=== PATIENT | male | born 1935 | race American Indian/Alaskan Native ===

== ENCOUNTER 2017-09-18 13:04 | Emergency (ER) | payer MEDICARE, OTHER ==
[~2017-09-18] VITALS: Ht 170.2 cm; Wt 90.0 kg
[~2017-09-18 13:04] MED LIST: ALBU18HF2 INH; AMLO5TAB4 PO; ASPI-1071 PO; CALC-159 PO; DOCU-28 PO; FLO0.4C PO; HYDR-3965 PO; KETO5DRO39 LEFTEYE; MELO-102 PO; OMEP20CA10 PO; SPIIN INH; TRAM50TA2 PO
[2017-09-18 15:01] VITALS: BP 141/72
== END 2017-09-18 15:10 | disposition home or self-care (01) ==
LOC: ER 13:05
DX: T83.9XXA Unspecified complication of genitourinary prosthetic device, implant and graft, initial encounter (principal); L89.302 Pressure ulcer of unspecified buttock, stage 2; I10 Essential (primary) hypertension; J44.9 Chronic obstructive pulmonary disease, unspecified; E11.9 Type 2 diabetes mellitus without complications; G89.29 Other chronic pain; Z85.51 Personal history of malignant neoplasm of bladder; Z86.73 Personal history of transient ischemic attack (TIA), and cerebral infarction without residual deficits; Z87.891 Personal history of nicotine dependence; Z98.890 Other specified postprocedural states; Z79.82 Long term (current) use of aspirin; Z79.899 Other long term (current) drug therapy
CPT/HCPCS: 51702; 99284; A4315; 99283

== ENCOUNTER 2017-10-07 14:36 | Inpatient (IN) | payer MEDICARE, OTHER ==
[~2017-10-07] VITALS: Ht 170.2 cm; Wt 80.0 kg
[2017-10-07] MEDS ORDERED: normal saline 1000ML IV soln IV ONE (14:50)
[2017-10-07] MEDS ORDERED: acetaminophen 325mg tablet PO ONE (15:15)
[2017-10-07] MEDS ORDERED: acetaminophen 650mg rectal suppository RC ONE (15:15)
[2017-10-07 15:21] LABS: BASOPHILS # (AUTO) 0.1 X10'3 (0-0.2); BASOPHILS % (AUTO) 0.4 % (0-1); EOSINOPHILS # (AUTO) 0.4 X10'3 (0-0.9); EOSINOPHILS % (AUTO) 1.7 % (0-6); HEMATOCRIT 28.4 % (42.0-52.0); HEMOGLOBIN 9.5 g/dl (14.0-17.9); LYMPHOCYTES # (AUTO) 1.2 X10'3 (1.1-4.8); LYMPHOCYTES % (AUTO) 5.7 % (21-51); MEAN CORPUSCULAR HEMOGLOBIN 27.2 PG (27.0-31.0); MEAN CORPUSCULAR HGB CONC 33.4 % (33.0-36.5); MEAN CORPUSCULAR VOLUME 81.5 FL (78-98); MEAN PLATELET VOLUME 6.3 FL (7.4-10.4); MONOCYTES % (AUTO) 4.8 % (2-12); NEUTROPHILS # (AUTO) 18.4 X10'3 (1.8-7.7); NEUTROPHILS % (AUTO) 87.4 % (42-75); PLATELET COUNT 542 X10'3 (140-440); RED BLOOD COUNT 3.48 X10'6 (4.70-6.10); RED CELL DISTRIBUTION WIDTH 17.3 % (11.5-14.5)
[2017-10-07 15:31] LABS: INR 1.3 INR; PARTIAL THROMBOPLASTIN TIME 35 SECONDS (22-32); PROTHROMBIN TIME 13.4 SECONDS (9.0-12.0)
[2017-10-07 15:35] LABS: ALANINE AMINOTRANSFERASE 21 U/L (12-78); ALBUMIN 2.5 G/DL (3.4-5.0); ALBUMIN/GLOBULIN RATIO 0.4 (1.1-1.5); ALKALINE PHOSPHATASE 225 IU/L (46-116); ANION GAP 18 (8-16); ASPARTATE AMINO TRANSFERASE 12 U/L (10-37); BILIRUBIN,TOTAL 0.5 MG/DL (0.1-1.0); BLOOD UREA NITROGEN 72 MG/DL (7-18); BUN/CREATININE RATIO 21.8 (5.4-32.0); CALCIUM 9.1 MG/DL (8.5-10.1); CHLORIDE 112 MMOL/L (99-107); GLUCOSE 141 MG/DL (70-104); MAGNESIUM 2.5 MG/DL (1.5-2.4); POTASSIUM 5.1 MMOL/L (3.5-5.1); SODIUM 147 MMOL/L (135-145); TOTAL CARBON DIOXIDE 16.7 MMOL/L (24-32); TOTAL PROTEIN 8.6 G/DL (6.4-8.2); eGFR 18 ML/MIN
[2017-10-07] MEDS ORDERED: CefTRIAXone/D5W-Rocephin 1gm 50 ML IV ONE (15:45)
[2017-10-07] MEDS ORDERED: cefTRIAXone 1g/NS 100ml IVPB 100 ML IV ONE (15:45)
[2017-10-07 16:56] LABS: ABG BASE EXCESS -10.3 mmol/L (-2.0-3.0); ABG HCO3 14.3 mmol/L (22.0-26.0); ABG OXYGEN SATURATION 96.4 % (95-98); ABG PCO2 (T) 27.1 mmHg (35.0-48.0); ABG PO2 (T) 101.3 mmHg (83-108); ALLEN'S TEST Positive; FCOHb 0.5 % (0.5-1.5); FLOW 1 L/min; FMetHb 0.3 % (0.3-1.12); FO2Hb 95.6 % (94-100); TOTAL HEMOGLOBIN 8.1 G/dl (14.0-18.0)
[2017-10-07 17:05] LABS: CLARITY,URINE CLOUDY (Clear); COLOR,URINE YELLOW (Yellow); GLUCOSE, URINE NEGATIVE (Neg); KETONES,URINE TRACE mg/dl (Neg); LEUKOCYTE ESTERASE ,URINE MODERATE (Neg); NITRITES, URINE NEGATIVE (Neg); OCCULT BLOOD,URINE LARGE (Neg); PROTEIN,URINE 100 mg/dl (Neg)
[2017-10-07 17:19] LABS: UA COLLECTION TYPE NON-SPECIFIED
[2017-10-07 17:37] LABS: BACTERIA,URINE NONE SEEN /HPF (Neg); SQUAMOUS EPITHELIAL CELL,UR FEW /LPF (FEW)
[2017-10-07] MEDS ORDERED: acetaminophen 650mg rectal suppository RC PRN (19:20)
[2017-10-07] MEDS ORDERED: ondansetron/PF 4mg/2ml inj IV PRN (19:20)
[2017-10-07] MEDS ORDERED: HYDROmorphone 2mg/ml vial IV PRN (19:30)
[2017-10-07] MEDS: dextrose 5%-1/2 normal saline 1,000 ML IV SCH (19:32)
[2017-10-07] MEDS: ipratropium 0.5 MG/2.5ML nebule IH SCH (21:00)
[2017-10-07] MEDS: heparin, porcine 5000 units/ml vial SQ SCH (21:10)
[2017-10-07] MEDS: ketorolac tromethamine 0.5% ophthalmic drops LEFTEYE SCH (22:11)
[2017-10-08] MEDS: ipratropium 0.5 MG/2.5ML nebule IH SCH ×3 (02:18→14:39)
[2017-10-08] MEDS: dextrose 5%-1/2 normal saline 1,000 ML IV SCH ×3 (02:44→23:51)
[2017-10-08 03:15] VITALS: BP 118/68
[2017-10-08 06:11] LABS: BASOPHILS % (AUTO) 0.3 % (0-1); EOSINOPHILS # (AUTO) 0.2 X10'3 (0-0.9); EOSINOPHILS % (AUTO) 1.6 % (0-6); HEMATOCRIT 23.4 % (42.0-52.0); HEMOGLOBIN 7.5 g/dl (14.0-17.9); LYMPHOCYTES # (AUTO) 1.3 X10'3 (1.1-4.8); LYMPHOCYTES % (AUTO) 12.7 % (21-51); MEAN CORPUSCULAR HEMOGLOBIN 26.8 PG (27.0-31.0); MEAN CORPUSCULAR HGB CONC 32.2 % (33.0-36.5); MEAN CORPUSCULAR VOLUME 83.2 FL (78-98); MEAN PLATELET VOLUME 6.2 FL (7.4-10.4); MONOCYTES # (AUTO) 0.7 X10'3 (0-0.9); NEUTROPHILS # (AUTO) 8.2 X10'3 (1.8-7.7); NEUTROPHILS % (AUTO) 78.4 % (42-75); PLATELET COUNT 379 X10'3 (140-440); RED BLOOD COUNT 2.82 X10'6 (4.70-6.10); RED CELL DISTRIBUTION WIDTH 17.5 % (11.5-14.5); WHITE BLOOD COUNT 10.5 X10'3 (4.5-11.0)
[2017-10-08 06:37] LABS: ALANINE AMINOTRANSFERASE 16 U/L (12-78); ALBUMIN/GLOBULIN RATIO 0.4 (1.1-1.5); ALKALINE PHOSPHATASE 169 IU/L (46-116); ANION GAP 13 (8-16); ASPARTATE AMINO TRANSFERASE 11 U/L (10-37); BILIRUBIN,TOTAL 0.3 MG/DL (0.1-1.0); BLOOD UREA NITROGEN 72 MG/DL (7-18); BUN/CREATININE RATIO 26.7 (5.4-32.0); CALCIUM 8.1 MG/DL (8.5-10.1); CHLORIDE 116 MMOL/L (99-107); GLUCOSE 222 MG/DL (70-104); POTASSIUM 4.3 MMOL/L (3.5-5.1); SODIUM 147 MMOL/L (135-145); TOTAL CARBON DIOXIDE 18.4 MMOL/L (24-32); eGFR 23 ML/MIN
[2017-10-08] MEDS ORDERED: non-formulary drug (Tiotropium Bromide (SPIRIVA inhaler) 1 CAP) INH SCH (08:00)
[2017-10-08] MEDS: ketorolac tromethamine 0.5% ophthalmic drops LEFTEYE SCH ×4 (08:00→21:26)
[2017-10-08] MEDS ORDERED: non-formulary drug (Albuterol Sulfate (Ventolin Hfa) 2 PUFFS) INH SCH (08:00)
[2017-10-08] MEDS: CefTRIAXone/D5W-Rocephin 1gm 50 ML IV SCH (08:45)
[2017-10-08] MEDS: heparin, porcine 5000 units/ml vial SQ SCH ×2 (08:45→21:26)
[2017-10-08] MEDS: albuterol 2.5 MG/3 ML nebule NEB SCH (09:48)
[2017-10-08 12:00] VITALS: BP 127/64
[2017-10-08] MEDS ORDERED: dextrose 50%-water 50ml dispensing syringe IV PRN ×2 (15:25)
[2017-10-08] MEDS ORDERED: glucagon, human recombinant 1mg kit SUBCUT PRN (15:25)
[2017-10-08] MEDS ORDERED: insulin Lispro (HumaLOG) vial - multi-dose SQ SCH (15:25)
[2017-10-08] MEDS ORDERED: dextrose ORAL solution 15 GM/59 ML bottle PO PRN ×2 (15:25)
[2017-10-08] MEDS ORDERED: MESSAGE TO PHARMACY PO ONE (15:25)
[2017-10-08] MEDS ORDERED: normal saline 1000ml 1,000 ML IV SCH (15:30)
[2017-10-08 16:30] LABS: HEMOGLOBIN A1C 5.9 % (4.5-6.2)
[2017-10-08] MEDS: lactobacillus rhamnosus 10,000 MMU CELLS/CAPSULE PO SCH (17:30)
[2017-10-08 18:30] VITALS: BP 104/68
[2017-10-08] MEDS: insulin glargine (Lantus) pen - multi-dose SQ SCH (21:00)
[2017-10-09] VITALS (16 sets, daily range): BP systolic 97–147; BP diastolic 52–81
[2017-10-09] MEDS: ipratropium 0.5 MG/2.5ML nebule IH SCH ×4 (01:58→20:51)
[2017-10-09 06:18] LABS: BASOPHILS # (AUTO) 0.1 X10'3 (0-0.2); BASOPHILS % (AUTO) 0.5 % (0-1); EOSINOPHILS # (AUTO) 0.3 X10'3 (0-0.9); LYMPHOCYTES # (AUTO) 0.9 X10'3 (1.1-4.8); LYMPHOCYTES % (AUTO) 9.4 % (21-51); MEAN CORPUSCULAR HEMOGLOBIN 27.2 PG (27.0-31.0); MEAN CORPUSCULAR HGB CONC 33.1 % (33.0-36.5); MEAN CORPUSCULAR VOLUME 82.1 FL (78-98); MEAN PLATELET VOLUME 6.3 FL (7.4-10.4); MONOCYTES # (AUTO) 0.7 X10'3 (0-0.9); MONOCYTES % (AUTO) 6.7 % (2-12); NEUTROPHILS # (AUTO) 7.8 X10'3 (1.8-7.7); NEUTROPHILS % (AUTO) 80.4 % (42-75); PLATELET COUNT 372 X10'3 (140-440); RED BLOOD COUNT 2.54 X10'6 (4.70-6.10); RED CELL DISTRIBUTION WIDTH 17.3 % (11.5-14.5); WHITE BLOOD COUNT 9.7 X10'3 (4.5-11.0)
[2017-10-09 07:04] LABS: ALANINE AMINOTRANSFERASE 13 U/L (12-78); ALBUMIN 1.9 G/DL (3.4-5.0); ALBUMIN/GLOBULIN RATIO 0.4 (1.1-1.5); ALKALINE PHOSPHATASE 135 IU/L (46-116); ANION GAP 15 (8-16); ASPARTATE AMINO TRANSFERASE 9 U/L (10-37); BILIRUBIN,TOTAL 0.2 MG/DL (0.1-1.0); BLOOD UREA NITROGEN 56 MG/DL (7-18); CALCIUM 7.9 MG/DL (8.5-10.1); CHLORIDE 118 MMOL/L (99-107); GLUCOSE 99 MG/DL (70-104); SODIUM 150 MMOL/L (135-145); TOTAL CARBON DIOXIDE 17.4 MMOL/L (24-32); TOTAL PROTEIN 6.5 G/DL (6.4-8.2); eGFR 32 ML/MIN
[2017-10-09] MEDS: lactobacillus rhamnosus 10,000 MMU CELLS/CAPSULE PO SCH ×2 (07:14→16:59)
[2017-10-09 07:22] LABS: HEMOGLOBIN 6.9 g/dl (14.0-17.9)
[2017-10-09 07:23] LABS: HEMATOCRIT 20.8 % (42.0-52.0)
[2017-10-09] MEDS: CefTRIAXone/D5W-Rocephin 1gm 50 ML IV SCH (07:34)
[2017-10-09] MEDS: ketorolac tromethamine 0.5% ophthalmic drops LEFTEYE SCH ×4 (07:34→21:11)
[2017-10-09] MEDS: heparin, porcine 5000 units/ml vial SQ SCH ×2 (07:34→21:11)
[2017-10-09] MEDS: albuterol 2.5 MG/3 ML nebule NEB SCH (08:42)
[2017-10-09] MEDS: dextrose 5%-1/2 normal saline 1,000 ML IV SCH ×2 (12:40→18:07)
[2017-10-09] MEDS: pantoprazole 40 MG vial IV SCH (18:04)
[2017-10-09 19:37] LABS: HEMOGLOBIN 9.4 g/dl (14.0-17.9); MEAN CORPUSCULAR HEMOGLOBIN 28.4 PG (27.0-31.0); MEAN CORPUSCULAR HGB CONC 33.5 % (33.0-36.5); MEAN CORPUSCULAR VOLUME 84.7 FL (78-98); MEAN PLATELET VOLUME 6.2 FL (7.4-10.4); PLATELET COUNT 361 X10'3 (140-440); RED CELL DISTRIBUTION WIDTH 16.7 % (11.5-14.5); WHITE BLOOD COUNT 11.6 X10'3 (4.5-11.0)
[2017-10-09] MEDS: insulin glargine (Lantus) pen - multi-dose SQ SCH (21:00)
[2017-10-10] VITALS: BP 136/70
[2017-10-10] MEDS: ipratropium 0.5 MG/2.5ML nebule IH SCH ×3 (02:36→14:49)
[2017-10-10 06:17] LABS: BASOPHILS % (AUTO) 0.2 % (0-1); EOSINOPHILS # (AUTO) 0.3 X10'3 (0-0.9); EOSINOPHILS % (AUTO) 2.9 % (0-6); HEMATOCRIT 27.1 % (42.0-52.0); HEMOGLOBIN 9.1 g/dl (14.0-17.9); LYMPHOCYTES # (AUTO) 1.1 X10'3 (1.1-4.8); LYMPHOCYTES % (AUTO) 11.1 % (21-51); MEAN CORPUSCULAR HEMOGLOBIN 28.4 PG (27.0-31.0); MEAN CORPUSCULAR HGB CONC 33.6 % (33.0-36.5); MEAN CORPUSCULAR VOLUME 84.5 FL (78-98); MEAN PLATELET VOLUME 6.4 FL (7.4-10.4); MONOCYTES # (AUTO) 0.8 X10'3 (0-0.9); MONOCYTES % (AUTO) 8.3 % (2-12); NEUTROPHILS # (AUTO) 7.7 X10'3 (1.8-7.7); NEUTROPHILS % (AUTO) 77.5 % (42-75); PLATELET COUNT 346 X10'3 (140-440); RED CELL DISTRIBUTION WIDTH 16.5 % (11.5-14.5); WHITE BLOOD COUNT 9.9 X10'3 (4.5-11.0)
[2017-10-10 06:33] LABS: ALANINE AMINOTRANSFERASE 20 U/L (12-78); ALBUMIN 1.9 G/DL (3.4-5.0); ALBUMIN/GLOBULIN RATIO 0.4 (1.1-1.5); ALKALINE PHOSPHATASE 130 IU/L (46-116); ANION GAP 12 (8-16); ASPARTATE AMINO TRANSFERASE 15 U/L (10-37); BILIRUBIN,TOTAL 0.4 MG/DL (0.1-1.0); BLOOD UREA NITROGEN 43 MG/DL (7-18); BUN/CREATININE RATIO 20.5 (5.4-32.0); CALCIUM 7.8 MG/DL (8.5-10.1); CHLORIDE 116 MMOL/L (99-107); GLUCOSE 99 MG/DL (70-104); POTASSIUM 3.8 MMOL/L (3.5-5.1); SODIUM 146 MMOL/L (135-145); TOTAL CARBON DIOXIDE 17.9 MMOL/L (24-32); TOTAL PROTEIN 6.3 G/DL (6.4-8.2); eGFR 30 ML/MIN
[2017-10-10 07:11] VITALS: BP 139/72
[2017-10-10] MEDS: pantoprazole 40 MG vial IV SCH (07:42)
[2017-10-10] MEDS: lactobacillus rhamnosus 10,000 MMU CELLS/CAPSULE PO SCH (07:42)
[2017-10-10] MEDS: heparin, porcine 5000 units/ml vial SQ SCH (07:48)
[2017-10-10] MEDS: dextrose 5%-1/2 normal saline 1,000 ML IV SCH (08:00)
[2017-10-10] MEDS: CefTRIAXone/D5W-Rocephin 1gm 50 ML IV SCH (08:04)
[2017-10-10] MEDS: ketorolac tromethamine 0.5% ophthalmic drops LEFTEYE SCH ×2 (08:05→13:00)
[2017-10-10 08:11] LABS: OCCULT BLOOD STOOL NEGATIVE (Neg)
[2017-10-10] MEDS: albuterol 2.5 MG/3 ML nebule NEB SCH (08:36)
[2017-10-10 11:15] VITALS: BP 131/77
[2017-10-10] MEDS ORDERED: SULF1TAB49 PO (14:32)
[2017-10-10] MEDS ORDERED: AMOX-580 PO (14:32)
== END 2017-10-10 16:43 | disposition home health service (06) | DRG 871 ==
LOC: ER 14:37 → ED HOLD 19:20 → EDBEDREQ 10-08 02:07 → MED 3N 10-08 03:05
PROVIDERS: ADMIT Internal Medicine; ATTEND Internal Medicine
PROC: 30233N1 Transfusion of Nonautologous Red Blood Cells into Peripheral Vein, Percutaneous Approach (ICD-10-PCS; principal; 2017-10-09)
DX: A41.9 Sepsis, unspecified organism (principal); G93.40 Encephalopathy, unspecified; N17.0 Acute kidney failure with tubular necrosis; E87.0 Hyperosmolality and hypernatremia; E11.22 Type 2 diabetes mellitus with diabetic chronic kidney disease; C67.9 Malignant neoplasm of bladder, unspecified; D64.9 Anemia, unspecified; N39.0 Urinary tract infection, site not specified; I12.9 Hypertensive chronic kidney disease with stage 1 through stage 4 chronic kidney disease, or unspecified chronic kidney disease; N13.9 Obstructive and reflux uropathy, unspecified; E86.0 Dehydration; H91.90 Unspecified hearing loss, unspecified ear; J44.9 Chronic obstructive pulmonary disease, unspecified; N18.3 Chronic kidney disease, stage 3 (moderate); N40.0 Benign prostatic hyperplasia without lower urinary tract symptoms; F32.9 Major depressive disorder, single episode, unspecified; G89.29 Other chronic pain; B95.2 Enterococcus as the cause of diseases classified elsewhere; B96.1 Klebsiella pneumoniae [K. pneumoniae] as the cause of diseases classified elsewhere; Z86.73 Personal history of transient ischemic attack (TIA), and cerebral infarction without residual deficits; Z87.891 Personal history of nicotine dependence
CPT/HCPCS: 36415; 36600; 71045; 80053; 81001; 82272; 82803; 82948; 83036; 83605; 83735; 83880; 84145; 85018; 85025; 85027; 85610; 85730; 86885; 86900; 86901; 86920; 87040; 87070; 87077; 87088; 87186; 87502; 87503; 92616; 93005; 94640; 94760; 96361; 96365; 99285; A6212; A6213; A6251; A6255; A6258; C9113; J0696; J1644; J1815; J7030; P9016

== ENCOUNTER 2017-11-26 10:58 | Inpatient (IN) | payer MEDICARE, OTHER ==
[~2017-11-26] VITALS: Ht 170.2 cm; Wt 72.7 kg
[~2017-11-26 10:58] MED LIST changes: -MELO-102 PO; -TRAM50TA2 PO
[2017-11-26 12:23] LABS: BASOPHILS % (AUTO) 0 % (0-1); EOSINOPHILS # (AUTO) 0.4 X10'3 (0-0.9); EOSINOPHILS % (AUTO) 1.4 % (0-6); HEMATOCRIT 27.2 % (42.0-52.0); LYMPHOCYTES % (AUTO) 6.7 % (21-51); MEAN CORPUSCULAR HEMOGLOBIN 27.9 PG (27.0-31.0); MEAN CORPUSCULAR HGB CONC 33.1 % (33.0-36.5); MEAN CORPUSCULAR VOLUME 84.4 FL (78-98); MEAN PLATELET VOLUME 6.5 FL (7.4-10.4); MONOCYTES # (AUTO) 0.5 X10'3 (0-0.9); MONOCYTES % (AUTO) 1.7 % (2-12); NEUTROPHILS # (AUTO) 27.5 X10'3 (1.8-7.7); NEUTROPHILS % (AUTO) 90.2 % (42-75); PLATELET COUNT 660 X10'3 (140-440); RED BLOOD COUNT 3.22 X10'6 (4.70-6.10)
[2017-11-26 12:25] LABS: WHITE BLOOD COUNT 30.4 X10'3 (4.5-11.0)
[2017-11-26 12:47] LABS: ALANINE AMINOTRANSFERASE 27 U/L (12-78); ALBUMIN 2.1 G/DL (3.4-5.0); ALBUMIN/GLOBULIN RATIO 0.3 (1.1-1.5); ALKALINE PHOSPHATASE 268 IU/L (46-116); ANION GAP 16 (8-16); ASPARTATE AMINO TRANSFERASE 32 U/L (10-37); BILIRUBIN,TOTAL 0.5 MG/DL (0.1-1.0); BLOOD UREA NITROGEN 68 MG/DL (7-18); BUN/CREATININE RATIO 22.4 (5.4-32.0); CALCIUM 9.1 MG/DL (8.5-10.1); CHLORIDE 104 MMOL/L (99-107); CREATININE 3.03 MG/DL (0.60-1.10); GLUCOSE 124 MG/DL (70-104); MAGNESIUM 2.6 MG/DL (1.5-2.4); POTASSIUM 5.2 MMOL/L (3.5-5.1); SODIUM 138 MMOL/L (135-145); TOTAL CARBON DIOXIDE 18.1 MMOL/L (24-32); TOTAL PROTEIN 8.3 G/DL (6.4-8.2); eGFR 20 ML/MIN
[2017-11-26 12:49] LABS: INR 1.3 INR; PARTIAL THROMBOPLASTIN TIME 34 SECONDS (22-32); PROTHROMBIN TIME 13.1 SECONDS (9.0-12.0)
[2017-11-26 13:19] LABS: ANISOCYTOSIS 2+; PLATELET ESTIMATE INCREASED; TOTAL CELLS COUNTED 100
[2017-11-26 13:21] LABS: LARGE PLATELETS FEW; POLYCHROMASIA FEW
[2017-11-26] MEDS ORDERED: normal saline 1000ML IV soln IV ONE (13:35)
[2017-11-26] MEDS ORDERED: MORPHINE 2MG in 2ml NS syringe IV PRN ×2 (13:40→14:40)
[2017-11-26] MEDS ORDERED: CefTRIAXone 2gm/NS 100ml IVPB 100 ML IV ONE (13:40)
[2017-11-26] MEDS ORDERED: ondansetron/PF 4mg/2ml inj IV PRN (14:40)
[2017-11-26] MEDS ORDERED: docusate sod 100mg capsule PO PRN (14:40)
[2017-11-26] MEDS ORDERED: magnesium 4gm in 100ml NS 100 ML IV PRN (14:40)
[2017-11-26] MEDS ORDERED: potassium Cl 20 mEq SR tablet PO PRN ×2 (14:40)
[2017-11-26] MEDS ORDERED: acetaminophen 325mg tablet PO PRN (14:40)
[2017-11-26] MEDS ORDERED: HYDROcodone/acetaminophen 5mg/325mg tablet PO PRN (14:40)
[2017-11-26] MEDS ORDERED: mag hydrox/Alum hydrox/simeth 30ml oral suspension PO PRN (14:40)
[2017-11-26] MEDS ORDERED: magnesium hydroxide 30ml (MOM) UD suspension PO PRN (14:40)
[2017-11-26] MEDS ORDERED: potassium Cl 40MEQ/NS 500ml 500 ML IV PRN ×2 (14:40)
[2017-11-26] MEDS ORDERED: magnesium 2GM in 50ml NS 50 ML IV PRN (14:40)
[2017-11-26] MEDS ORDERED: magnesium Cl slow-release 64mg tablet PO PRN (14:40)
[2017-11-26 14:46] LABS: CLARITY,URINE CLOUDY (Clear); COLOR,URINE BROWN (Yellow); GLUCOSE, URINE NEGATIVE (Neg); KETONES,URINE NEGATIVE (Neg); LEUKOCYTE ESTERASE ,URINE MODERATE (Neg); NITRITES, URINE POSITIVE (Neg); OCCULT BLOOD,URINE LARGE (Neg); PROTEIN,URINE 100 mg/dl (Neg)
[2017-11-26 14:47] LABS: UA COLLECTION TYPE FOLEY CATH
[2017-11-26 15:03] LABS: WBC,URINE TNTC /HPF (0-4)
[2017-11-26 15:04] LABS: BACTERIA,URINE 3+ /HPF (Neg); MUCUS STRANDS FEW /LPF (Neg); RBC,URINE TNTC /HPF (0-2); SQUAMOUS EPITHELIAL CELL,UR FEW /LPF (FEW); TRANSITIONAL EPI CELLS,URINE FEW /HPF
[2017-11-26] MEDS: normal saline 1000ml 1,000 ML IV SCH ×2 (16:16→22:12)
[2017-11-26] MEDS: ketorolac tromethamine 0.5% ophthalmic drops LEFTEYE SCH ×2 (17:00→22:12)
[2017-11-26] MEDS: ipratropium 0.5 MG/2.5ML nebule NEB SCH ×2 (17:29→21:28)
[2017-11-26] MEDS: HYDROcodone/acetaminophen 10/325mg tab PO PRN (18:22)
[2017-11-26] MEDS ORDERED: morphine 4 MG/ML inj SYRINge IV PRN ×2 (19:04)
[2017-11-26] MEDS ORDERED: AMOX-580 PO (19:14)
[2017-11-26] MEDS ORDERED: FERR325T39 PO (19:14)
[2017-11-26] MEDS ORDERED: ATOR20TA66 PO (19:14)
[2017-11-26] MEDS ORDERED: FAMO40TA73 PO (19:14)
[2017-11-26] MEDS ORDERED: SULF1TAB48 PO (19:14)
[2017-11-26 20:00] VITALS: BP 97/53
[2017-11-27] VITALS: BP 104/53
[2017-11-27] MEDS: ipratropium 0.5 MG/2.5ML nebule NEB SCH ×4 (03:34→20:40)
[2017-11-27 06:25] LABS: BASOPHILS % (AUTO) 0.2 % (0-1); EOSINOPHILS # (AUTO) 0.4 X10'3 (0-0.9); EOSINOPHILS % (AUTO) 2.2 % (0-6); LYMPHOCYTES # (AUTO) 0.8 X10'3 (1.1-4.8); LYMPHOCYTES % (AUTO) 4.5 % (21-51); MEAN CORPUSCULAR HEMOGLOBIN 27.8 PG (27.0-31.0); MEAN CORPUSCULAR HGB CONC 32.9 % (33.0-36.5); MEAN CORPUSCULAR VOLUME 84.5 FL (78-98); MEAN PLATELET VOLUME 6.3 FL (7.4-10.4); MONOCYTES # (AUTO) 0.5 X10'3 (0-0.9); MONOCYTES % (AUTO) 2.8 % (2-12); NEUTROPHILS # (AUTO) 15.6 X10'3 (1.8-7.7); NEUTROPHILS % (AUTO) 90.3 % (42-75); PLATELET COUNT 489 X10'3 (140-440); RED BLOOD COUNT 2.53 X10'6 (4.70-6.10); RED CELL DISTRIBUTION WIDTH 18.9 % (11.5-14.5); WHITE BLOOD COUNT 17.3 X10'3 (4.5-11.0)
[2017-11-27 06:43] LABS: ALBUMIN 1.6 G/DL (3.4-5.0); ANION GAP 13 (8-16); BLOOD UREA NITROGEN 57 MG/DL (7-18); BUN/CREATININE RATIO 24.5 (5.4-32.0); CHLORIDE 113 MMOL/L (99-107); CREATININE 2.33 MG/DL (0.60-1.10); GLUCOSE 65 MG/DL (70-104); MAGNESIUM 2.2 MG/DL (1.5-2.4); POTASSIUM 4.6 MMOL/L (3.5-5.1); SODIUM 144 MMOL/L (135-145); TOTAL CARBON DIOXIDE 18.4 MMOL/L (24-32); eGFR 27 ML/MIN
[2017-11-27 07:01] LABS: HEMATOCRIT 21.4 % (42.0-52.0)
[2017-11-27 07:34] VITALS: BP 125/64
[2017-11-27] MEDS: K and/or MAG REPLACEMENT MC SCH (08:00)
[2017-11-27] MEDS: enoxaparin 40mg/0.4ml syringe SUBCUT SCH (08:00)
[2017-11-27] MEDS: aspirin 81mg tablet.DR PO SCH (08:00)
[2017-11-27] MEDS: albuterol 2.5 MG/3 ML nebule NEB SCH (08:46)
[2017-11-27] MEDS: ketorolac tromethamine 0.5% ophthalmic drops LEFTEYE SCH ×4 (09:54→21:00)
[2017-11-27] MEDS: CefTRIAXone/D5W-Rocephin 1gm 50 ML IV SCH (09:54)
[2017-11-27] MEDS: pantoprazole 40mg Tablet.DR PO SCH (09:56)
[2017-11-27] MEDS: calcium carbonate/vitamin D3 tablet PO SCH (09:56)
[2017-11-27] MEDS: normal saline 1000ml 1,000 ML IV SCH (09:57)
[2017-11-27 11:30] VITALS: BP 128/105
[2017-11-27 19:00] VITALS: BP 134/54
[2017-11-28] VITALS (11 sets, daily range): BP systolic 99–143; BP diastolic 48–75
[2017-11-28] MEDS: normal saline 1000ml 1,000 ML IV SCH ×4 (00:31→23:25)
[2017-11-28] MEDS: ipratropium 0.5 MG/2.5ML nebule NEB SCH ×4 (02:58→20:47)
[2017-11-28 05:27] LABS: ALBUMIN 1.5 G/DL (3.4-5.0); ANION GAP 12 (8-16); BLOOD UREA NITROGEN 46 MG/DL (7-18); BUN/CREATININE RATIO 22.5 (5.4-32.0); CALCIUM 7.8 MG/DL (8.5-10.1); CHLORIDE 113 MMOL/L (99-107); CREATININE 2.04 MG/DL (0.60-1.10); GLUCOSE 70 MG/DL (70-104); POTASSIUM 4.1 MMOL/L (3.5-5.1); SODIUM 143 MMOL/L (135-145); TOTAL CARBON DIOXIDE 17.9 MMOL/L (24-32); eGFR 31 ML/MIN
[2017-11-28 05:31] LABS: BASOPHILS % (AUTO) 0 % (0-1); EOSINOPHILS # (AUTO) 0.3 X10'3 (0-0.9); EOSINOPHILS % (AUTO) 2.5 % (0-6); LYMPHOCYTES % (AUTO) 7.3 % (21-51); MEAN CORPUSCULAR HEMOGLOBIN 28.1 PG (27.0-31.0); MEAN CORPUSCULAR HGB CONC 33.5 % (33.0-36.5); MONOCYTES # (AUTO) 0.7 X10'3 (0-0.9); MONOCYTES % (AUTO) 5.4 % (2-12); NEUTROPHILS # (AUTO) 11.3 X10'3 (1.8-7.7); NEUTROPHILS % (AUTO) 84.8 % (42-75); PLATELET COUNT 482 X10'3 (140-440); RED BLOOD COUNT 2.38 X10'6 (4.70-6.10); RED CELL DISTRIBUTION WIDTH 18.8 % (11.5-14.5); WHITE BLOOD COUNT 13.3 X10'3 (4.5-11.0)
[2017-11-28 06:02] LABS: HEMOGLOBIN 6.7 g/dl (14.0-17.9)
[2017-11-28] MEDS: albuterol 2.5 MG/3 ML nebule NEB SCH (07:35)
[2017-11-28] MEDS: aspirin 81mg tablet.DR PO SCH (08:00)
[2017-11-28] MEDS: K and/or MAG REPLACEMENT MC SCH (08:00)
[2017-11-28] MEDS: ketorolac tromethamine 0.5% ophthalmic drops LEFTEYE SCH ×4 (08:00→22:54)
[2017-11-28] MEDS: enoxaparin 40mg/0.4ml syringe SUBCUT SCH (08:00)
[2017-11-28] MEDS: pantoprazole 40mg Tablet.DR PO SCH (08:19)
[2017-11-28] MEDS: calcium carbonate/vitamin D3 tablet PO SCH (08:19)
[2017-11-28] MEDS: CefTRIAXone/D5W-Rocephin 1gm 50 ML IV SCH (08:22)
[2017-11-28] MEDS ORDERED: MESSAGE TO PHARMACY PO ONE (20:15)
[2017-11-28] MEDS ORDERED: dextrose ORAL solution 15 GM/59 ML bottle PO PRN ×2 (20:15)
[2017-11-28] MEDS ORDERED: glucagon, human recombinant 1mg kit SUBCUT PRN (20:15)
[2017-11-28] MEDS ORDERED: insulin Lispro (HumaLOG) vial - multi-dose SQ SCH (20:15)
[2017-11-28] MEDS ORDERED: dextrose 50%-water 50ml dispensing syringe IV PRN ×2 (20:15)
[2017-11-28] MEDS: insulin glargine (Lantus) pen - multi-dose SQ SCH (21:00)
[2017-11-28] MEDS: lactobacillus rhamnosus 10,000 MMU CELLS/CAPSULE PO SCH (22:42)
[2017-11-28] MEDS: HYDROcodone/acetaminophen 10/325mg tab PO PRN (22:52)
[2017-11-28 22:58] LABS: HEMATOCRIT 24.4 % (42.0-52.0); HEMOGLOBIN 8.3 g/dl (14.0-17.9); MEAN CORPUSCULAR HEMOGLOBIN 28.4 PG (27.0-31.0); MEAN CORPUSCULAR HGB CONC 33.8 % (33.0-36.5); MEAN CORPUSCULAR VOLUME 83.9 FL (78-98); MEAN PLATELET VOLUME 5.9 FL (7.4-10.4); PLATELET COUNT 466 X10'3 (140-440); RED BLOOD COUNT 2.91 X10'6 (4.70-6.10); RED CELL DISTRIBUTION WIDTH 17.9 % (11.5-14.5); WHITE BLOOD COUNT 13.7 X10'3 (4.5-11.0)
[2017-11-29] MEDS: ipratropium 0.5 MG/2.5ML nebule NEB SCH ×4 (02:52→21:41)
[2017-11-29] MEDS: K and/or MAG REPLACEMENT MC SCH (08:00)
[2017-11-29] MEDS: CefTRIAXone/D5W-Rocephin 1gm 50 ML IV SCH (08:41)
[2017-11-29] MEDS: lactobacillus rhamnosus 10,000 MMU CELLS/CAPSULE PO SCH ×2 (08:41→20:11)
[2017-11-29] MEDS: pantoprazole 40mg Tablet.DR PO SCH (08:41)
[2017-11-29] MEDS: aspirin 81mg tablet.DR PO SCH (08:42)
[2017-11-29] MEDS: calcium carbonate/vitamin D3 tablet PO SCH (08:42)
[2017-11-29] MEDS: ketorolac tromethamine 0.5% ophthalmic drops LEFTEYE SCH ×4 (08:44→20:57)
[2017-11-29] MEDS: enoxaparin 40mg/0.4ml syringe SUBCUT SCH (08:45)
[2017-11-29] MEDS: normal saline 1000ml 1,000 ML IV SCH ×2 (08:55→20:16)
[2017-11-29 09:02] VITALS: BP 125/67
[2017-11-29] MEDS: albuterol 2.5 MG/3 ML nebule NEB SCH (09:31)
[2017-11-29 10:13] LABS: BASOPHILS % (AUTO) 0.1 % (0-1); EOSINOPHILS # (AUTO) 0.4 X10'3 (0-0.9); EOSINOPHILS % (AUTO) 2.9 % (0-6); HEMATOCRIT 29.5 % (42.0-52.0); HEMOGLOBIN 9.6 g/dl (14.0-17.9); LYMPHOCYTES % (AUTO) 7.6 % (21-51); MEAN CORPUSCULAR HEMOGLOBIN 27.8 PG (27.0-31.0); MEAN CORPUSCULAR HGB CONC 32.6 % (33.0-36.5); MEAN CORPUSCULAR VOLUME 85.3 FL (78-98); MEAN PLATELET VOLUME 6.1 FL (7.4-10.4); MONOCYTES # (AUTO) 0.6 X10'3 (0-0.9); MONOCYTES % (AUTO) 4.6 % (2-12); NEUTROPHILS # (AUTO) 11.2 X10'3 (1.8-7.7); NEUTROPHILS % (AUTO) 84.8 % (42-75); PLATELET COUNT 460 X10'3 (140-440); RED BLOOD COUNT 3.46 X10'6 (4.70-6.10); RED CELL DISTRIBUTION WIDTH 18.2 % (11.5-14.5); WHITE BLOOD COUNT 13.1 X10'3 (4.5-11.0)
[2017-11-29 10:22] LABS: ALBUMIN 1.6 G/DL (3.4-5.0); ANION GAP 8 (8-16); BLOOD UREA NITROGEN 36 MG/DL (7-18); BUN/CREATININE RATIO 21.2 (5.4-32.0); CHLORIDE 112 MMOL/L (99-107); GLUCOSE 103 MG/DL (70-104); MAGNESIUM 1.7 MG/DL (1.5-2.4); POTASSIUM 4.2 MMOL/L (3.5-5.1); SODIUM 141 MMOL/L (135-145); TOTAL CARBON DIOXIDE 20.8 MMOL/L (24-32); eGFR 39 ML/MIN
[2017-11-29 11:30] VITALS: BP 123/53
[2017-11-29] MEDS: LACTOSE-FREE FOOD 237ML (BOOST) PO SCH (18:00)
[2017-11-29 19:00] VITALS: BP 140/70
[2017-11-29] MEDS: HYDROcodone/acetaminophen 10/325mg tab PO PRN (20:12)
[2017-11-29] MEDS: insulin glargine (Lantus) pen - multi-dose SQ SCH (21:00)
[2017-11-29 21:55] LABS: OCCULT BLOOD STOOL NEGATIVE (Neg)
[2017-11-30] VITALS: BP 113/64
[2017-11-30] MEDS: ipratropium 0.5 MG/2.5ML nebule NEB SCH (03:19)
[2017-11-30 05:14] LABS: BASOPHILS % (AUTO) 0.5 % (0-1); EOSINOPHILS # (AUTO) 0.3 X10'3 (0-0.9); EOSINOPHILS % (AUTO) 2.9 % (0-6); HEMATOCRIT 22.2 % (42.0-52.0); HEMOGLOBIN 7.5 g/dl (14.0-17.9); LYMPHOCYTES % (AUTO) 9.4 % (21-51); MEAN CORPUSCULAR HEMOGLOBIN 28.5 PG (27.0-31.0); MEAN CORPUSCULAR HGB CONC 33.8 % (33.0-36.5); MEAN CORPUSCULAR VOLUME 84.5 FL (78-98); MEAN PLATELET VOLUME 6.1 FL (7.4-10.4); MONOCYTES # (AUTO) 0.6 X10'3 (0-0.9); NEUTROPHILS # (AUTO) 8.6 X10'3 (1.8-7.7); NEUTROPHILS % (AUTO) 81.2 % (42-75); PLATELET COUNT 411 X10'3 (140-440); RED BLOOD COUNT 2.63 X10'6 (4.70-6.10); RED CELL DISTRIBUTION WIDTH 18.4 % (11.5-14.5); WHITE BLOOD COUNT 10.6 X10'3 (4.5-11.0)
[2017-11-30 05:21] LABS: ALBUMIN 1.4 G/DL (3.4-5.0); ANION GAP 10 (8-16); BLOOD UREA NITROGEN 31 MG/DL (7-18); BUN/CREATININE RATIO 18.3 (5.4-32.0); CALCIUM 7.7 MG/DL (8.5-10.1); CHLORIDE 113 MMOL/L (99-107); CREATININE 1.69 MG/DL (0.60-1.10); GLUCOSE 109 MG/DL (70-104); MAGNESIUM 1.8 MG/DL (1.5-2.4); POTASSIUM 3.8 MMOL/L (3.5-5.1); SODIUM 141 MMOL/L (135-145); TOTAL CARBON DIOXIDE 17.7 MMOL/L (24-32); eGFR 39 ML/MIN
[2017-11-30] MEDS: normal saline 1000ml 1,000 ML IV SCH (05:53)
[2017-11-30 07:37] VITALS: BP 129/51
[2017-11-30] MEDS: enoxaparin 40mg/0.4ml syringe SUBCUT SCH (08:00)
[2017-11-30] MEDS: K and/or MAG REPLACEMENT MC SCH (08:00)
[2017-11-30] MEDS: aspirin 81mg tablet.DR PO SCH (08:00)
[2017-11-30] MEDS: CefTRIAXone/D5W-Rocephin 1gm 50 ML IV SCH (08:43)
[2017-11-30] MEDS: pantoprazole 40mg Tablet.DR PO SCH (08:43)
[2017-11-30] MEDS: lactobacillus rhamnosus 10,000 MMU CELLS/CAPSULE PO SCH (08:43)
[2017-11-30] MEDS: calcium carbonate/vitamin D3 tablet PO SCH (08:43)
[2017-11-30] MEDS: ketorolac tromethamine 0.5% ophthalmic drops LEFTEYE SCH ×2 (08:44→12:56)
[2017-11-30] MEDS: LACTOSE-FREE FOOD 237ML (BOOST) PO SCH ×2 (08:46→12:57)
[2017-11-30 11:30] VITALS: BP 128/66
[2017-11-30] MEDS ORDERED: LEVO500T2 PO (15:14)
== END 2017-11-30 16:57 | disposition home health service (06) | DRG 871 ==
LOC: ER 10:58 → ED HOLD 14:40 → SUR 3N 20:50
PROVIDERS: ADMIT Internal Medicine; ATTEND Internal Medicine
PROC: 30233N1 Transfusion of Nonautologous Red Blood Cells into Peripheral Vein, Percutaneous Approach (ICD-10-PCS; principal; 2017-11-28)
DX: A41.9 Sepsis, unspecified organism (principal); G92 Toxic encephalopathy; N17.9 Acute kidney failure, unspecified; E11.51 Type 2 diabetes mellitus with diabetic peripheral angiopathy without gangrene; L89.629 Pressure ulcer of left heel, unspecified stage; L89.619 Pressure ulcer of right heel, unspecified stage; C67.9 Malignant neoplasm of bladder, unspecified; D63.8 Anemia in other chronic diseases classified elsewhere; F03.90 Unspecified dementia, unspecified severity, without behavioral disturbance, psychotic disturbance, mood disturbance, and anxiety; N39.0 Urinary tract infection, site not specified; B95.2 Enterococcus as the cause of diseases classified elsewhere; B96.1 Klebsiella pneumoniae [K. pneumoniae] as the cause of diseases classified elsewhere; B96.5 Pseudomonas (aeruginosa) (mallei) (pseudomallei) as the cause of diseases classified elsewhere; F32.9 Major depressive disorder, single episode, unspecified; J44.9 Chronic obstructive pulmonary disease, unspecified; G89.4 Chronic pain syndrome; I10 Essential (primary) hypertension; I25.10 Atherosclerotic heart disease of native coronary artery without angina pectoris; N40.0 Benign prostatic hyperplasia without lower urinary tract symptoms; Z79.82 Long term (current) use of aspirin; Z79.899 Other long term (current) drug therapy; Z86.73 Personal history of transient ischemic attack (TIA), and cerebral infarction without residual deficits; Z87.891 Personal history of nicotine dependence; Z87.01 Personal history of pneumonia (recurrent)
CPT/HCPCS: 36415; 71045; 80048; 80053; 81001; 82272; 82948; 83036; 83605; 83735; 84145; 85025; 85027; 85610; 85730; 86885; 86900; 86901; 86920; 87040; 87070; 87077; 87088; 87186; 93005; 94640; 94760; 96361; 96365; 96375; 99285; A4315; A6212; A6213; J0696; J1650; J1815; J2274; J7030; P9016

== ENCOUNTER 2018-01-31 22:12 | Inpatient (IN) | payer MEDICARE, OTHER ==
[~2018-01-31] VITALS: Ht 170.2 cm; Wt 80.9 kg
[~2018-01-31 22:12] MED LIST changes: -AMLO5TAB4 PO; -ASPI-1071 PO; +ASPI81TA46; +CYCL-1 PO; +FAMO40TA73 PO; +FERR325T39 PO; -FLO0.4C PO; -HYDR-3965 PO; +HYDR-3972; -KETO5DRO39 LEFTEYE; +LACT-28 PO; +LEVO750T46 PO; -OMEP20CA10 PO; -SPIIN INH
[2018-01-31 23:00] LABS: BASOPHILS # (AUTO) 0.1 X10'3 (0-0.2); BASOPHILS % (AUTO) 0.5 % (0-1); EOSINOPHILS # (AUTO) 0.5 X10'3 (0-0.9); EOSINOPHILS % (AUTO) 3.4 % (0-6); HEMATOCRIT 27.1 % (42.0-52.0); HEMOGLOBIN 8.8 g/dl (14.0-17.9); LYMPHOCYTES % (AUTO) 21.9 % (21-51); MEAN CORPUSCULAR HEMOGLOBIN 29.1 PG (27.0-31.0); MEAN CORPUSCULAR HGB CONC 32.6 % (33.0-36.5); MEAN CORPUSCULAR VOLUME 89.2 FL (78-98); MEAN PLATELET VOLUME 5.7 FL (7.4-10.4); MONOCYTES % (AUTO) 6.9 % (2-12); NEUTROPHILS # (AUTO) 9.4 X10'3 (1.8-7.7); NEUTROPHILS % (AUTO) 67.3 % (42-75); PLATELET COUNT 489 X10'3 (140-440); RED BLOOD COUNT 3.04 X10'6 (4.70-6.10); RED CELL DISTRIBUTION WIDTH 18.4 % (11.5-14.5); WHITE BLOOD COUNT 13.9 X10'3 (4.5-11.0)
[2018-01-31] MEDS ORDERED: normal saline 1000ML IV soln IVB ONE (23:05)
[2018-01-31 23:12] LABS: INR 1.2 INR; PARTIAL THROMBOPLASTIN TIME 33 SECONDS (22-32); PROTHROMBIN TIME 11.9 SECONDS (9.0-12.0)
[2018-01-31 23:14] LABS: ALANINE AMINOTRANSFERASE 21 U/L (12-78); ALBUMIN 1.8 G/DL (3.4-5.0); ALBUMIN/GLOBULIN RATIO 0.3 (1.1-1.5); ALKALINE PHOSPHATASE 214 IU/L (46-116); ANION GAP 7 (8-16); ASPARTATE AMINO TRANSFERASE 38 U/L (10-37); BILIRUBIN,TOTAL 0.4 MG/DL (0.1-1.0); BLOOD UREA NITROGEN 31 MG/DL (7-18); BUN/CREATININE RATIO 15.7 (5.4-32.0); CALCIUM 8.1 MG/DL (8.5-10.1); CHLORIDE 108 MMOL/L (99-107); CREATININE 1.98 MG/DL (0.60-1.10); GLUCOSE 93 MG/DL (70-104); POTASSIUM 4.7 MMOL/L (3.5-5.1); SODIUM 142 MMOL/L (135-145); TOTAL CARBON DIOXIDE 27.4 MMOL/L (24-32); TOTAL PROTEIN 7.3 G/DL (6.4-8.2); eGFR 32 ML/MIN
[2018-01-31 23:19] LABS: PLATELET ESTIMATE INCREASED; TOTAL CELLS COUNTED 100
[2018-01-31 23:20] LABS: ANISOCYTOSIS 1+
[2018-01-31] MEDS ORDERED: piperacillin/tazo 3.375gm/50ml 50 ML IV ONE (23:25)
[2018-01-31] MEDS ORDERED: normal saline 1000ML IV soln IV ONE (23:25)
[2018-01-31] MEDS ORDERED: vancomycin/NS 1 GM ADD-VANTAGE 250 ML IV ONE (23:25)
[2018-02-01 00:04] LABS: CLARITY,URINE CLOUDY (Clear); COLOR,URINE BROWN (Yellow); GLUCOSE, URINE NEGATIVE (Neg); KETONES,URINE 15 mg/dl (Neg); LEUKOCYTE ESTERASE ,URINE LARGE (Neg); NITRITES, URINE POSITIVE (Neg); OCCULT BLOOD,URINE LARGE (Neg); PH,URINE 6.5 (4.8-8.0); PROTEIN,URINE >=300 mg/dl (Neg)
[2018-02-01 00:08] LABS: UA COLLECTION TYPE FOLEY CATH
[2018-02-01] MEDS ORDERED: fentaNYL/PF 50MCG/1 ML 2ML syringe IV PRN (00:10)
[2018-02-01] MEDS ORDERED: heparin 10,000 units/1 ML INJ IV ONE ×2 (00:30)
[2018-02-01 00:31] LABS: BACTERIA,URINE 3+ /HPF (Neg); MUCUS STRANDS NONE SEEN /LPF (Neg); RBC,URINE TNTC /HPF (0-2); SQUAMOUS EPITHELIAL CELL,UR NONE SEEN /LPF (FEW); WBC,URINE TNTC /HPF (0-4)
[2018-02-01] MEDS ORDERED: HYDROcodone/acetaminophen 5mg/325mg tablet PO PRN (00:55)
[2018-02-01] MEDS ORDERED: ondansetron/PF 4mg/2ml inj IV PRN (00:55)
[2018-02-01] MEDS ORDERED: magnesium hydroxide 30ml (MOM) UD suspension PO PRN (00:55)
[2018-02-01] MEDS ORDERED: mag hydrox/Alum hydrox/simeth 30ml oral suspension PO PRN (00:55)
[2018-02-01] MEDS ORDERED: docusate sod 100mg capsule PO PRN (01:00)
[2018-02-01] MEDS ORDERED: cyclobenzaprine 10mg tablet PO PRN (01:00)
[2018-02-01] MEDS: normal saline 1000ml 1,000 ML IV SCH ×2 (01:11→09:59)
[2018-02-01] MEDS: HYDROcodone/acetaminophen 10/325mg tab PO SCH ×4 (02:00→20:08)
[2018-02-01 02:35] VITALS: BP 117/58
[2018-02-01 06:00] VITALS: BP 124/75
[2018-02-01 06:39] LABS: BASOPHILS # (AUTO) 0.1 X10'3 (0-0.2); BASOPHILS % (AUTO) 0.5 % (0-1); EOSINOPHILS # (AUTO) 0.2 X10'3 (0-0.9); EOSINOPHILS % (AUTO) 1.7 % (0-6); HEMOGLOBIN 7.1 g/dl (14.0-17.9); LYMPHOCYTES # (AUTO) 1.6 X10'3 (1.1-4.8); MEAN CORPUSCULAR HEMOGLOBIN 29.2 PG (27.0-31.0); MEAN CORPUSCULAR HGB CONC 32.7 % (33.0-36.5); MEAN CORPUSCULAR VOLUME 89.4 FL (78-98); MEAN PLATELET VOLUME 5.9 FL (7.4-10.4); NEUTROPHILS # (AUTO) 9.2 X10'3 (1.8-7.7); NEUTROPHILS % (AUTO) 76.8 % (42-75); PLATELET COUNT 334 X10'3 (140-440); RED BLOOD COUNT 2.41 X10'6 (4.70-6.10); RED CELL DISTRIBUTION WIDTH 18.7 % (11.5-14.5)
[2018-02-01 06:55] LABS: HEMATOCRIT 21.6 % (42.0-52.0)
[2018-02-01] MEDS: lactobacillus rhamnosus 10,000 MMU CELLS/CAPSULE PO SCH ×2 (07:46→20:08)
[2018-02-01] MEDS: LACTOSE-FREE FOOD 237ML (BOOST) PO SCH ×3 (07:55→18:00)
[2018-02-01] MEDS: piperacillin-tazo 2.25gm/50ml 50 ML IV SCH ×3 (07:57→20:08)
[2018-02-01] MEDS ORDERED: enoxaparin 80mg/0.8ml syringe SUBCUT SCH (08:00)
[2018-02-01] MEDS: albuterol 2.5 MG/3 ML nebule NEB SCH (09:30)
[2018-02-01] MEDS: heparin 10,000 units/1 ML INJ IV PRN (09:53)
[2018-02-01 10:08] LABS: HEMOGLOBIN A1C 4.8 % (4.5-6.2)
[2018-02-01 10:30] VITALS: BP 91/57
[2018-02-01 18:30] VITALS: BP 118/64
[2018-02-01] MEDS: famotidine 20mg tablet PO SCH (20:08)
[2018-02-01 22:00] VITALS: BP 108/59
[2018-02-02] MEDS: HYDROcodone/acetaminophen 10/325mg tab PO SCH ×4 (01:50→20:02)
[2018-02-02] MEDS: piperacillin-tazo 2.25gm/50ml 50 ML IV SCH ×4 (01:56→20:04)
[2018-02-02] MEDS: normal saline 1000ml 1,000 ML IV SCH ×4 (01:56→21:48)
[2018-02-02 05:00] VITALS: BP 101/61
[2018-02-02 05:13] LABS: ABSOLUTE RETICS # 33100 /CUMM (23000-93000); BASOPHILS % (AUTO) 0.5 % (0-1); EOSINOPHILS # (AUTO) 0.5 X10'3 (0-0.9); EOSINOPHILS % (AUTO) 5.3 % (0-6); LYMPHOCYTES # (AUTO) 1.3 X10'3 (1.1-4.8); LYMPHOCYTES % (AUTO) 15.3 % (21-51); MEAN CORPUSCULAR HEMOGLOBIN 29.4 PG (27.0-31.0); MEAN CORPUSCULAR VOLUME 89.1 FL (78-98); MEAN PLATELET VOLUME 5.7 FL (7.4-10.4); MONOCYTES # (AUTO) 0.8 X10'3 (0-0.9); MONOCYTES % (AUTO) 9.3 % (2-12); NEUTROPHILS # (AUTO) 6.1 X10'3 (1.8-7.7); NEUTROPHILS % (AUTO) 69.6 % (42-75); PLATELET COUNT 309 X10'3 (140-440); RED BLOOD COUNT 2.16 X10'6 (4.70-6.10); RED CELL DISTRIBUTION WIDTH 18.3 % (11.5-14.5); RETICULOCYTE % (AUTO) 1.5 % (0.5-1.5); WHITE BLOOD COUNT 8.8 X10'3 (4.5-11.0)
[2018-02-02 05:16] LABS: HEMOGLOBIN 6.4 g/dl (14.0-17.9)
[2018-02-02 05:17] LABS: HEMATOCRIT 19.2 % (42.0-52.0)
[2018-02-02 07:35] LABS: ALANINE AMINOTRANSFERASE 13 U/L (12-78); ALBUMIN 1.2 G/DL (3.4-5.0); ALBUMIN/GLOBULIN RATIO 0.3 (1.1-1.5); ALKALINE PHOSPHATASE 122 IU/L (46-116); ANION GAP 8 (8-16); ASPARTATE AMINO TRANSFERASE 31 U/L (10-37); BILIRUBIN,TOTAL 0.4 MG/DL (0.1-1.0); BLOOD UREA NITROGEN 26 MG/DL (7-18); BUN/CREATININE RATIO 15.8 (5.4-32.0); CALCIUM 7.3 MG/DL (8.5-10.1); CHLORIDE 113 MMOL/L (99-107); CREATININE 1.65 MG/DL (0.60-1.10); FERRITIN 460 NG/ML (26-388); GLUCOSE 58 MG/DL (70-104); POTASSIUM 4.2 MMOL/L (3.5-5.1); SODIUM 143 MMOL/L (135-145); TOTAL CARBON DIOXIDE 21.9 MMOL/L (24-32); TOTAL PROTEIN 5.4 G/DL (6.4-8.2); eGFR 40 ML/MIN
[2018-02-02] MEDS: lactobacillus rhamnosus 10,000 MMU CELLS/CAPSULE PO SCH ×2 (08:00→20:02)
[2018-02-02 08:04] LABS: % IRON SATURATION 41 % (11-46); IRON 15 UG/DL (53-167); TOTAL IRON BINDING CAPACITY 37 UG/DL (259-388)
[2018-02-02] MEDS: heparin 10,000 units/1 ML INJ IV PRN ×3 (08:06→21:47)
[2018-02-02] MEDS: LACTOSE-FREE FOOD 237ML (BOOST) PO SCH ×3 (08:09→18:00)
[2018-02-02 10:00] VITALS: BP 108/58
[2018-02-02 18:00] VITALS: BP 113/71
[2018-02-02] MEDS: famotidine 20mg tablet PO SCH (20:02)
[2018-02-02] MEDS: albuterol 2.5 MG/3 ML nebule NEB SCH (21:53)
[2018-02-02 22:24] VITALS: BP 107/51
[2018-02-03] MEDS: HYDROcodone/acetaminophen 10/325mg tab PO SCH ×5 (02:00→20:26)
[2018-02-03] MEDS: piperacillin-tazo 2.25gm/50ml 50 ML IV SCH ×4 (02:06→20:23)
[2018-02-03 03:42] LABS: BASOPHILS % (AUTO) 0.6 % (0-1); EOSINOPHILS # (AUTO) 0.6 X10'3 (0-0.9); EOSINOPHILS % (AUTO) 7.5 % (0-6); LYMPHOCYTES # (AUTO) 1.3 X10'3 (1.1-4.8); LYMPHOCYTES % (AUTO) 16.8 % (21-51); MEAN CORPUSCULAR HEMOGLOBIN 29.1 PG (27.0-31.0); MEAN CORPUSCULAR HGB CONC 33.1 % (33.0-36.5); MEAN PLATELET VOLUME 5.5 FL (7.4-10.4); MONOCYTES # (AUTO) 0.7 X10'3 (0-0.9); MONOCYTES % (AUTO) 9.9 % (2-12); NEUTROPHILS # (AUTO) 4.9 X10'3 (1.8-7.7); NEUTROPHILS % (AUTO) 65.2 % (42-75); PLATELET COUNT 300 X10'3 (140-440); RED BLOOD COUNT 2.01 X10'6 (4.70-6.10); RED CELL DISTRIBUTION WIDTH 18.8 % (11.5-14.5); WHITE BLOOD COUNT 7.5 X10'3 (4.5-11.0)
[2018-02-03 03:56] LABS: ALANINE AMINOTRANSFERASE 15 U/L (12-78); ALBUMIN 1.2 G/DL (3.4-5.0); ALBUMIN/GLOBULIN RATIO 0.3 (1.1-1.5); ALKALINE PHOSPHATASE 131 IU/L (46-116); ANION GAP 6 (8-16); ASPARTATE AMINO TRANSFERASE 28 U/L (10-37); BILIRUBIN,TOTAL 0.3 MG/DL (0.1-1.0); BLOOD UREA NITROGEN 24 MG/DL (7-18); BUN/CREATININE RATIO 14.1 (5.4-32.0); CALCIUM 7.3 MG/DL (8.5-10.1); CHLORIDE 112 MMOL/L (99-107); GLUCOSE 72 MG/DL (70-104); HEMATOCRIT 17.7 % (42.0-52.0); HEMOGLOBIN 5.9 g/dl (14.0-17.9); POTASSIUM 4.2 MMOL/L (3.5-5.1); SODIUM 141 MMOL/L (135-145); TOTAL CARBON DIOXIDE 23.1 MMOL/L (24-32); TOTAL PROTEIN 5.3 G/DL (6.4-8.2); eGFR 39 ML/MIN
[2018-02-03 05:00] VITALS: BP 101/55
[2018-02-03] MEDS: heparin 10,000 units/1 ML INJ IV PRN ×2 (05:13→12:35)
[2018-02-03] MEDS: LACTOSE-FREE FOOD 237ML (BOOST) PO SCH ×3 (07:49→20:23)
[2018-02-03] MEDS: lactobacillus rhamnosus 10,000 MMU CELLS/CAPSULE PO SCH ×2 (07:55→20:23)
[2018-02-03] MEDS: albuterol 2.5 MG/3 ML nebule NEB SCH (08:37)
[2018-02-03 10:00] VITALS: BP 98/51
[2018-02-03] MEDS: normal saline 1000ml 1,000 ML IV SCH (17:07)
[2018-02-03 18:00] VITALS: BP 101/54
[2018-02-03 18:58] LABS: PARTIAL THROMBOPLASTIN TIME 46 SECONDS (22-32)
[2018-02-03] MEDS: famotidine 20mg tablet PO SCH (20:24)
[2018-02-03 22:00] VITALS: BP 106/55
[2018-02-04] MEDS: HYDROcodone/acetaminophen 10/325mg tab PO SCH ×5 (02:00→21:22)
[2018-02-04] MEDS: piperacillin-tazo 2.25gm/50ml 50 ML IV SCH ×4 (02:19→21:22)
[2018-02-04 02:23] LABS: BASOPHILS % (AUTO) 0.4 % (0-1); EOSINOPHILS # (AUTO) 0.5 X10'3 (0-0.9); EOSINOPHILS % (AUTO) 6.4 % (0-6); LYMPHOCYTES # (AUTO) 1.5 X10'3 (1.1-4.8); LYMPHOCYTES % (AUTO) 18.6 % (21-51); MEAN CORPUSCULAR HEMOGLOBIN 29.8 PG (27.0-31.0); MEAN CORPUSCULAR HGB CONC 33.9 % (33.0-36.5); MEAN CORPUSCULAR VOLUME 88.1 FL (78-98); MEAN PLATELET VOLUME 5.9 FL (7.4-10.4); MONOCYTES # (AUTO) 0.8 X10'3 (0-0.9); MONOCYTES % (AUTO) 9.1 % (2-12); NEUTROPHILS # (AUTO) 5.4 X10'3 (1.8-7.7); NEUTROPHILS % (AUTO) 65.5 % (42-75); PLATELET COUNT 280 X10'3 (140-440); RED CELL DISTRIBUTION WIDTH 18.6 % (11.5-14.5); WHITE BLOOD COUNT 8.3 X10'3 (4.5-11.0)
[2018-02-04 02:31] LABS: HEMATOCRIT 16.7 % (42.0-52.0); HEMOGLOBIN 5.7 g/dl (14.0-17.9)
[2018-02-04 06:00] VITALS: BP 112/61
[2018-02-04] MEDS: LACTOSE-FREE FOOD 237ML (BOOST) PO SCH ×3 (08:21→18:09)
[2018-02-04] MEDS: lactobacillus rhamnosus 10,000 MMU CELLS/CAPSULE PO SCH ×2 (08:22→21:21)
[2018-02-04] MEDS: albuterol 2.5 MG/3 ML nebule NEB SCH (09:01)
[2018-02-04 09:17] LABS: BASOPHILS % (AUTO) 0.5 % (0-1); EOSINOPHILS # (AUTO) 0.6 X10'3 (0-0.9); EOSINOPHILS % (AUTO) 7.4 % (0-6); LYMPHOCYTES # (AUTO) 1.3 X10'3 (1.1-4.8); LYMPHOCYTES % (AUTO) 16.7 % (21-51); MEAN CORPUSCULAR HEMOGLOBIN 29.4 PG (27.0-31.0); MEAN CORPUSCULAR HGB CONC 33.3 % (33.0-36.5); MEAN CORPUSCULAR VOLUME 88.4 FL (78-98); MEAN PLATELET VOLUME 5.9 FL (7.4-10.4); MONOCYTES # (AUTO) 0.7 X10'3 (0-0.9); MONOCYTES % (AUTO) 9.4 % (2-12); NEUTROPHILS # (AUTO) 5.2 X10'3 (1.8-7.7); PLATELET COUNT 275 X10'3 (140-440); RED BLOOD COUNT 2.04 X10'6 (4.70-6.10); RED CELL DISTRIBUTION WIDTH 18.2 % (11.5-14.5); WHITE BLOOD COUNT 7.9 X10'3 (4.5-11.0)
[2018-02-04] MEDS: normal saline 1000ml 1,000 ML IV SCH (09:25)
[2018-02-04 09:29] LABS: ALANINE AMINOTRANSFERASE 12 U/L (12-78); ALBUMIN 1.2 G/DL (3.4-5.0); ALBUMIN/GLOBULIN RATIO 0.3 (1.1-1.5); ALKALINE PHOSPHATASE 173 IU/L (46-116); ANION GAP 10 (8-16); ASPARTATE AMINO TRANSFERASE 26 U/L (10-37); BILIRUBIN,TOTAL 0.3 MG/DL (0.1-1.0); BLOOD UREA NITROGEN 22 MG/DL (7-18); BUN/CREATININE RATIO 13.8 (5.4-32.0); CALCIUM 7.4 MG/DL (8.5-10.1); CHLORIDE 112 MMOL/L (99-107); CREATININE 1.59 MG/DL (0.60-1.10); GLUCOSE 87 MG/DL (70-104); SODIUM 142 MMOL/L (135-145); TOTAL CARBON DIOXIDE 20.1 MMOL/L (24-32); TOTAL PROTEIN 5.4 G/DL (6.4-8.2); eGFR 42 ML/MIN
[2018-02-04 10:00] VITALS: BP 113/63
[2018-02-04 18:00] VITALS: BP 108/52
[2018-02-04] MEDS: famotidine 20mg tablet PO SCH (21:21)
[2018-02-04 22:00] VITALS: BP 110/61
[2018-02-05] MEDS: HYDROcodone/acetaminophen 10/325mg tab PO SCH ×4 (02:00→21:02)
[2018-02-05] MEDS: piperacillin-tazo 2.25gm/50ml 50 ML IV SCH ×3 (02:06→13:20)
[2018-02-05] MEDS: normal saline 1000ml 1,000 ML IV SCH ×2 (02:10→21:47)
[2018-02-05 05:00] VITALS: BP 113/59
[2018-02-05 06:18] LABS: BASOPHILS % (AUTO) 0.8 % (0-1); EOSINOPHILS # (AUTO) 0.6 X10'3 (0-0.9); EOSINOPHILS % (AUTO) 9.6 % (0-6); LYMPHOCYTES # (AUTO) 1.4 X10'3 (1.1-4.8); LYMPHOCYTES % (AUTO) 20.9 % (21-51); MEAN CORPUSCULAR HEMOGLOBIN 29.2 PG (27.0-31.0); MEAN CORPUSCULAR VOLUME 88.3 FL (78-98); MEAN PLATELET VOLUME 5.8 FL (7.4-10.4); MONOCYTES # (AUTO) 0.6 X10'3 (0-0.9); MONOCYTES % (AUTO) 9.4 % (2-12); NEUTROPHILS # (AUTO) 3.9 X10'3 (1.8-7.7); NEUTROPHILS % (AUTO) 59.3 % (42-75); PLATELET COUNT 319 X10'3 (140-440); RED CELL DISTRIBUTION WIDTH 18.1 % (11.5-14.5); WHITE BLOOD COUNT 6.5 X10'3 (4.5-11.0)
[2018-02-05 06:34] LABS: ALANINE AMINOTRANSFERASE 17 U/L (12-78); ALBUMIN 1.2 G/DL (3.4-5.0); ALBUMIN/GLOBULIN RATIO 0.3 (1.1-1.5); ALKALINE PHOSPHATASE 222 IU/L (46-116); ANION GAP 6 (8-16); ASPARTATE AMINO TRANSFERASE 28 U/L (10-37); BILIRUBIN,TOTAL 0.3 MG/DL (0.1-1.0); BLOOD UREA NITROGEN 22 MG/DL (7-18); BUN/CREATININE RATIO 13.3 (5.4-32.0); CALCIUM 7.7 MG/DL (8.5-10.1); CHLORIDE 117 MMOL/L (99-107); CREATININE 1.66 MG/DL (0.60-1.10); GLUCOSE 61 MG/DL (70-104); HEMOGLOBIN 5.8 g/dl (14.0-17.9); POTASSIUM 4.2 MMOL/L (3.5-5.1); SODIUM 145 MMOL/L (135-145); TOTAL CARBON DIOXIDE 22.4 MMOL/L (24-32); TOTAL PROTEIN 5.4 G/DL (6.4-8.2); eGFR 40 ML/MIN
[2018-02-05 06:35] LABS: HEMATOCRIT 17.6 % (42.0-52.0)
[2018-02-05] MEDS: lactobacillus rhamnosus 10,000 MMU CELLS/CAPSULE PO SCH ×2 (07:27→21:02)
[2018-02-05] MEDS: LACTOSE-FREE FOOD 237ML (BOOST) PO SCH ×3 (08:00→18:00)
[2018-02-05] MEDS: albuterol 2.5 MG/3 ML nebule NEB SCH (08:29)
[2018-02-05 10:00] VITALS: BP 118/35
[2018-02-05] MEDS: piperacillin/tazo 3.375gm/50ml 50 ML IV SCH ×2 (16:50→21:45)
[2018-02-05 18:00] VITALS: BP 104/64
[2018-02-05] MEDS: famotidine 20mg tablet PO SCH (21:01)
[2018-02-05 22:00] VITALS: BP 114/60
[2018-02-06] MEDS: HYDROcodone/acetaminophen 10/325mg tab PO SCH ×5 (02:00→20:26)
[2018-02-06] MEDS: piperacillin/tazo 3.375gm/50ml 50 ML IV SCH ×4 (02:25→20:26)
[2018-02-06 06:00] VITALS: BP 123/59
[2018-02-06] MEDS: albuterol 2.5 MG/3 ML nebule NEB SCH (07:41)
[2018-02-06] MEDS: lactobacillus rhamnosus 10,000 MMU CELLS/CAPSULE PO SCH ×2 (08:32→20:26)
[2018-02-06] MEDS: LACTOSE-FREE FOOD 237ML (BOOST) PO SCH ×3 (08:59→18:53)
[2018-02-06 10:00] VITALS: BP 119/65
[2018-02-06] MEDS: normal saline 1000ml 1,000 ML IV SCH (17:16)
[2018-02-06 18:00] VITALS: BP 109/51
[2018-02-06] MEDS ORDERED: LORazepam 2 mg/ml vial IV PRN (20:15)
[2018-02-06] MEDS: famotidine 20mg tablet PO SCH (20:26)
[2018-02-07] MEDS: HYDROcodone/acetaminophen 10/325mg tab PO SCH ×3 (02:00→09:48)
[2018-02-07] MEDS: piperacillin/tazo 3.375gm/50ml 50 ML IV SCH ×2 (02:22→08:08)
[2018-02-07 07:00] VITALS: BP 171/72
[2018-02-07] MEDS: lactobacillus rhamnosus 10,000 MMU CELLS/CAPSULE PO SCH (07:45)
[2018-02-07] MEDS: LACTOSE-FREE FOOD 237ML (BOOST) PO SCH (08:00)
[2018-02-07] MEDS: albuterol 2.5 MG/3 ML nebule NEB SCH (08:02)
== END 2018-02-07 10:50 | disposition hospice, home (50) | DRG 314 ==
LOC: ER 22:13 → ORTHO 4S 02-01 00:52
PROVIDERS: ADMIT Internal Medicine; ATTEND Family Medicine
DX: T82.868A Thrombosis due to vascular prosthetic devices, implants and grafts, initial encounter (principal); A41.9 Sepsis, unspecified organism; E43 Unspecified severe protein-calorie malnutrition; L89.154 Pressure ulcer of sacral region, stage 4; N15.1 Renal and perinephric abscess; I82.B11 Acute embolism and thrombosis of right subclavian vein; N39.0 Urinary tract infection, site not specified; N18.3 Chronic kidney disease, stage 3 (moderate); N13.8 Other obstructive and reflux uropathy; C63.9 Malignant neoplasm of male genital organ, unspecified; L89.620 Pressure ulcer of left heel, unstageable; L89.610 Pressure ulcer of right heel, unstageable; E11.22 Type 2 diabetes mellitus with diabetic chronic kidney disease; B96.20 Unspecified Escherichia coli [E. coli] as the cause of diseases classified elsewhere; C67.9 Malignant neoplasm of bladder, unspecified; D63.8 Anemia in other chronic diseases classified elsewhere; Z68.27 Body mass index [BMI] 27.0-27.9, adult; H91.90 Unspecified hearing loss, unspecified ear; I12.9 Hypertensive chronic kidney disease with stage 1 through stage 4 chronic kidney disease, or unspecified chronic kidney disease; B96.5 Pseudomonas (aeruginosa) (mallei) (pseudomallei) as the cause of diseases classified elsewhere; B96.1 Klebsiella pneumoniae [K. pneumoniae] as the cause of diseases classified elsewhere; J44.9 Chronic obstructive pulmonary disease, unspecified; Y84.6 Urinary catheterization as the cause of abnormal reaction of the patient, or of later complication, without mention of misadventure at the time of the procedure; Y83.8 Other surgical procedures as the cause of abnormal reaction of the patient, or of later complication, without mention of misadventure at the time of the procedure; N40.1 Benign prostatic hyperplasia with lower urinary tract symptoms; F32.9 Major depressive disorder, single episode, unspecified; R62.7 Adult failure to thrive; G89.29 Other chronic pain; Z51.5 Encounter for palliative care; Z66 Do not resuscitate; Z86.73 Personal history of transient ischemic attack (TIA), and cerebral infarction without residual deficits; Z93.6 Other artificial openings of urinary tract status; Z87.891 Personal history of nicotine dependence; Z74.01 Bed confinement status; Y92.89 Other specified places as the place of occurrence of the external cause; Z79.4 Long term (current) use of insulin; Z79.84 Long term (current) use of oral hypoglycemic drugs; Z79.01 Long term (current) use of anticoagulants
CPT/HCPCS: 36415; 71045; 80053; 81001; 81003; 82607; 82728; 82746; 82948; 83036; 83540; 83550; 83605; 84145; 84439; 84443; 85025; 85045; 85610; 85730; 86885; 86900; 86901; 87040; 87070; 87077; 87088; 87186; 93005; 93971; 94640; 94760; 96361; 96365; 96375; 99285; A4649; A6209; A6212; A6213; A6223; A6257; A6258; A6446; A6449; J1644; J1650; J2060; J2543; J3010; J3370; J7030